=== PATIENT | female | born 1980 | race Two or more races ===

== ENCOUNTER 2018-07-25 01:04 | Emergency (ER) | payer SELFPAY ==
[~2018-07-25] VITALS: Ht 160 cm; Wt 85.5 kg
[2018-07-25 01:22] VITALS: BP 122/84
[2018-07-25] MEDS ORDERED: METHOCARBAMOL 750 MG TABLET ONE (01:57)
[2018-07-25] MEDS ORDERED: KETOROLAC 30 MG/1 ML ONE (01:57)
[2018-07-25] MEDS ORDERED: METHOCARBAMOL 500 MG TABLET PO ONE (02:00)
[2018-07-25] MEDS ORDERED: KETOROLAC 30 MG/1 ML IM ONE (02:00)
== END 2018-07-25 03:35 | disposition home or self-care (01) ==
LOC: ED 03:29
DX: G89.11 Acute pain due to trauma (principal); M54.5 Low back pain; F17.210 Nicotine dependence, cigarettes, uncomplicated; X58.XXXA Exposure to other specified factors, initial encounter; Y93.89 Activity, other specified; Y92.89 Other specified places as the place of occurrence of the external cause; Y99.8 Other external cause status
CPT/HCPCS: 72110; 93005; 96372; 99284; J1885

== ENCOUNTER 2019-01-08 08:48 | Emergency (ER) | payer MEDICAID, OTHER ==
[~2019-01-08] VITALS: Ht 160 cm; Wt 80.6 kg
[2019-01-08] MEDS ORDERED: methylPREDNISolone SOD SUCC 125 MG/2 ML ONE (09:13)
[2019-01-08] MEDS ORDERED: methylPREDNISolone SOD SUCC 125 MG/2 ML IVPush ONE (09:30)
[2019-01-08] MEDS ORDERED: AMPICILLIN/SULBACTAM 3 GM in SODIUM CHLORIDE 0.9% 100 ML IV ONE (09:30)
[2019-01-08] MEDS ORDERED: SODIUM CHLORIDE FLUSH 10ML SYR IVF ONE (09:30)
--- NOTE | 2019-01-08 09:40 | NUR ---
Sore throat w/ swollen tonsils x 2 days. Pain worse on R sd. Both tonsils swollen & red, almost touching. IV est, steroids & IV abx started. Pt aware of POC, call light within reach, blanket provided, friend @ BS.
[2019-01-08 10:49] VITALS: BP 108/57
--- NOTE | 2019-01-08 10:51 | NUR ---
Patient/Caregiver given discharge instructions and they have confirmed that they understand the instructions. Patient ambulatory with steady gait. Pt left with all personal belongings.
== END 2019-01-08 10:52 | disposition home or self-care (01) ==
LOC: ED 10:14
DX: J03.91 Acute recurrent tonsillitis, unspecified (principal); F17.200 Nicotine dependence, unspecified, uncomplicated
CPT/HCPCS: 96365; 96375; 99283; J0295; J2930

== ENCOUNTER 2019-08-17 20:00 | Observation (INO) | payer MEDICAID ==
[~2019-08-17] VITALS: Ht 160 cm; Wt 78.5 kg
[2019-08-17] MEDS ORDERED: AMOXICILLIN 500 MG CAPSULE PO ONE (20:30)
[2019-08-17] MEDS ORDERED: DEXAMETHASONE 4 MG TABLET PO ONE (20:30)
[2019-08-17] MEDS ORDERED: DEXAMETHASONE 4 MG/ML, 5ML ONE (20:58)
[2019-08-17] MEDS ORDERED: ONDANSETRON 2MG/ML, 2ML ONE (20:59)
[2019-08-17] MEDS ORDERED: MORPHINE SULFATE 4 MG/ML, 1ML ONE (20:59)
[2019-08-17] MEDS ORDERED: CLINDAMYCIN PMX 600MG/50ML 50 ML ONE (20:59)
[2019-08-17] MEDS ORDERED: BENZOCAINE AEROSOL SPRAY 20%, 60ML TP ONE (21:00)
[2019-08-17] MEDS ORDERED: DEXAMETHASONE 4 MG/ML, 1ML IVPush SCH (21:00)
[2019-08-17] MEDS ORDERED: CLINDAMYCIN PMX 600MG/50ML 50 ML IV ONE (21:00)
[2019-08-17] MEDS ORDERED: SODIUM CHLORIDE 0.9% 1,000ML IVBOLUS ONE (21:00)
[2019-08-17] MEDS ORDERED: ONDANSETRON 2MG/ML, 2ML IVPush ONE (21:00)
[2019-08-17] MEDS: MORPHINE SULFATE 4 MG/ML, 1ML IVPush PRN (21:06)
[2019-08-17] MEDS ORDERED: BENZOCAINE 20% SPRAY 0.5ML ONE (21:32)
[2019-08-17] MEDS ORDERED: BENZOCAINE AEROSOL SPRAY 20%, 60ML ONE (21:32)
[2019-08-17] MEDS ORDERED: HYDROmorphone 1 MG/ML, 1ML INJ IVPush PRN (22:00)
--- NOTE | 2019-08-17 22:04 | NUR ---
CT PENDING CREATINE
[2019-08-17] MEDS ORDERED: HYDROmorphone 1 MG/ML, 1ML VIAL ONE (22:06)
[2019-08-17 22:18] LABS: BASOPHILS # (AUTO) 0.03 x10^3/uL (0-0.1); BASOPHILS % (AUTO) 0 % (0-1); EOSINOPHILS % (AUTO) 0 % (1-7); LYMPHOCYTES # (AUTO) 1.62 x10^3/uL (1-3.4); LYMPHOCYTES % (AUTO) 15 % (22-44); MD NO; MEAN CORPUSCULAR HEMOGLOBIN 24.6 pg (27.0-34.8); MEAN CORPUSCULAR HGB CONC 31.3 g/dL (32.4-35.8); MEAN CORPUSCULAR VOLUME 78.8 fL (80-100); MEAN PLATELET VOLUME 8.9 fL (7.4-10.4); MONOCYTES # (AUTO) 0.51 x10^3/uL (0.2-0.8); MONOCYTES % (AUTO) 5 % (2-9); NEUTROPHILS # (AUTO) 8.37 x10^3/uL (1.8-6.8); NEUTROPHILS % (AUTO) 79 % (42-75); PLATELET COUNT 301 x10^3/uL (130-400); RED BLOOD COUNT 3.86 x10^6/uL (3.82-5.3)
--- NOTE | 2019-08-17 22:20 | NUR ---
PATIENT GIVEN ICE CHIPS, PROVIDER APPROVED. PATIENT TOLERATING INTERVENTIONS WELL. WILL CONTINUE TO MONITOR. PATIENT ABLE TO COMMUNICATE NEEDS, AND HAS IMPROVED WITH TOLERATING SECRETIONS.
[2019-08-17 22:28] LABS: ALANINE AMINOTRANSFERASE 25 U/L (12-78); ALBUMIN 3.3 g/dL (3.4-5.0); ANION GAP 5 mmol/L (5-15); CALCIUM 8.7 mg/dL (8.5-10.1); CHLORIDE 109 mmol/L (98-107)
[2019-08-17] MEDS ORDERED: DEXAMETHASONE 4 MG/ML, 1ML IVPush ONE (22:30)
[2019-08-17 22:31] LABS: ALKALINE PHOSPHATASE 103 U/L (45-117); BILIRUBIN,TOTAL 0.2 mg/dL (0.2-1.0); CREATININE 0.63 mg/dL (0.55-1.02); TOTAL PROTEIN 7.7 g/dL (6.4-8.2)
[2019-08-17] MEDS ORDERED: OMNIPAQUE 350 MG/ML, 100ML BOTTLE ONE (23:27)
--- NOTE | 2019-08-17 23:50 | NUR ---
PATIENT GIVEN ICE CHIPS, PROVIDER OKAY'D. PATIENT TOLERATING PROCEDURES WELL. NO NOTED ACUTE DISTRES. VITAL SIGNS STABLE. WILL CONTINUE TO MONITOR.
[2019-08-18] MEDS ORDERED: POTASSIUM CHLORIDE 40 MEQ in SODIUM CHLORIDE 0.9% 500 ML IV ONE ×2 (00:30→02:00)
[2019-08-18] MEDS ORDERED: SODIUM CHLORIDE 0.9% 1,000 ML IV ONE (00:33)
[2019-08-18] MEDS ORDERED: MORPHINE SULFATE 4 MG/ML, 1ML ONE (00:36)
[2019-08-18] MEDS: MORPHINE SULFATE 4 MG/ML, 1ML IVPush PRN (00:43)
--- NOTE | 2019-08-18 01:08 | NUR ---
patient given hurricaine, patient stated that her pain immediately improved. patient stated that the pain was "almost gone".
[2019-08-18] MEDS ORDERED: SODIUM CHLORIDE 0.9% 1,000 ML IV SCH (01:31)
[2019-08-18 01:51] VITALS: BP 116/82
[2019-08-18] MEDS ORDERED: hydrALAzine 20 MG/ML, 1ML IVPush PRN (02:00)
[2019-08-18] MEDS ORDERED: PROMETHAZINE 25 MG/ML, 1ML IM PRN (02:00)
[2019-08-18] MEDS ORDERED: ONDANSETRON ODT 4 MG PO PRN (02:00)
[2019-08-18] MEDS ORDERED: OXYcodone IR 5MG TABLET PO PRN (02:00)
[2019-08-18] MEDS ORDERED: BISACODYL 10 MG SUPP PR PRN (02:00)
[2019-08-18] MEDS ORDERED: morphine SULFATE 10 MG/ML, 1ML IVPush PRN (02:00)
[2019-08-18] MEDS ORDERED: ONDANSETRON 2MG/ML, 2ML IVPush PRN (02:00)
[2019-08-18] MEDS ORDERED: DOCUSATE 100 MG CAPSULE PO PRN (02:00)
[2019-08-18] MEDS ORDERED: KETOROLAC 30 MG/1 ML IV PRN (02:00)
[2019-08-18] MEDS ORDERED: POLYETHYLENE GLYCOL 17 GM PACKET PO PRN (02:00)
[2019-08-18] MEDS ORDERED: ACETAMINOPHEN 325 MG TABLET PO PRN (02:00)
[2019-08-18] MEDS: AMPICILLIN/SULBACTAM 3 GM in SODIUM CHLORIDE 0.9% 100 ML IV SCH ×2 (02:02→08:21)
[2019-08-18] MEDS: DEXAMETHASONE 4 MG/ML, 1ML IVPush SCH ×2 (02:02→08:21)
[2019-08-18 02:10] LABS: FREE T4 (FREE THYROXINE) 1.08 ng/dL (0.76-1.46)
[2019-08-18 02:12] LABS: HEMOGLOBIN A1C 5.1 % (4.2-6.3)
[2019-08-18] MEDS ORDERED: ACETAMINOPHEN 650 MG/20.3 ML UDC PO PRN (03:00)
[2019-08-18] MEDS: OXYcodone 5 MG/5 ML ORAL.SOL UDC PO PRN ×2 (03:05→07:41)
[2019-08-18 03:06] VITALS: BP 116/82
[2019-08-18 05:25] LABS: BASOPHILS % (AUTO) 0 % (0-1); EOSINOPHILS # (AUTO) 0.18 x10^3/uL (0-0.4); EOSINOPHILS % (AUTO) 2 % (1-7); LYMPHOCYTES # (AUTO) 0.65 x10^3/uL (1-3.4); LYMPHOCYTES % (AUTO) 5 % (22-44); MD NO; MEAN CORPUSCULAR VOLUME 80.5 fL (80-100); MONOCYTES # (AUTO) 0.11 x10^3/uL (0.2-0.8); MONOCYTES % (AUTO) 1 % (2-9); NEUTROPHILS # (AUTO) 11.36 x10^3/uL (1.8-6.8); NEUTROPHILS % (AUTO) 92 % (42-75); PLATELET COUNT 287 x10^3/uL (130-400); RED BLOOD COUNT 3.81 x10^6/uL (3.82-5.3); RED CELL DISTRIBUTION WIDTH 17.3 % (9.6-15.2)
[2019-08-18 05:39] LABS: ANION GAP 5 mmol/L (5-15); CHLORIDE 111 mmol/L (98-107)
[2019-08-18 05:43] LABS: ALANINE AMINOTRANSFERASE 22 U/L (12-78); ALBUMIN 3.3 g/dL (3.4-5.0); ALKALINE PHOSPHATASE 114 U/L (45-117); BILIRUBIN,TOTAL 0.6 mg/dL (0.2-1.0); CREATININE 0.62 mg/dL (0.55-1.02); TOTAL PROTEIN 7.7 g/dL (6.4-8.2)
[2019-08-18 07:53] VITALS: BP 102/68
[2019-08-19] MEDS ORDERED: SODIUM CHLORIDE 0.9% 1,000 ML IV SCH (01:31)
== END 2019-08-18 12:23 | disposition left against medical advice (07) ==
LOC: ED 08-18 00:13 → INTOOBSV 08-18 01:04 → EDIP 08-18 01:04 → 4NE 08-18 01:35
PROVIDERS: ADMIT Internal Medicine; ATTEND Internal Medicine
DX: J03.90 Acute tonsillitis, unspecified (principal); D50.9 Iron deficiency anemia, unspecified; E87.6 Hypokalemia; F17.210 Nicotine dependence, cigarettes, uncomplicated; G43.909 Migraine, unspecified, not intractable, without status migrainosus; R59.9 Enlarged lymph nodes, unspecified; Z53.29 Procedure and treatment not carried out because of patient's decision for other reasons; Z79.899 Other long term (current) drug therapy
CPT/HCPCS: 36415; 70491; 80053; 82728; 83036; 83540; 83550; 83735; 84439; 84443; 84466; 85025; 86308; 87081; 87147; 87389; 87880; 96365; 96366; 96368; 96375; 96376; 99285; G0378; J0295; J1100; J1170; J1885; J2270; J2405; J3480; J7030; J7040; Q9967

== ENCOUNTER 2019-10-13 00:45 | Emergency (ER) | payer MEDICAID ==
[~2019-10-13] VITALS: Ht 160 cm; Wt 78.4 kg
--- NOTE | 2019-10-13 01:11 | NUR ---
ASSESSMENT MADE. ERP AT BEDSIDE.
[2019-10-13] MEDS ORDERED: SULFAMETH./TRIMETHOPRIM DS 800MG/160MG TABLET PO ONE (01:30)
[2019-10-13] MEDS ORDERED: LIDOCAINE 1%-EPI 1:100K, 20ML INFIL ONE (01:30)
[2019-10-13] MEDS ORDERED: CEPHALEXIN 500 MG CAPSULE ONE (01:30)
[2019-10-13] MEDS ORDERED: CEPHALEXIN 500 MG CAPSULE PO ONE (01:30)
[2019-10-13] MEDS ORDERED: ACETAMINOPHEN 500 MG TABLET PO ONE (01:30)
[2019-10-13] MEDS ORDERED: IBUPROFEN 600 MG TABLET PO ONE (01:30)
[2019-10-13] MEDS ORDERED: IBUPROFEN 600 MG TABLET ONE (01:31)
[2019-10-13] MEDS ORDERED: SULFAMETH./TRIMETHOPRIM DS 800MG/160MG TABLET ONE (01:31)
[2019-10-13] MEDS ORDERED: ACETAMINOPHEN 500 MG TABLET ONE (01:31)
[2019-10-13] MEDS ORDERED: LIDOCAINE 1%-EPI 1:100K, 20ML ONE (01:31)
--- NOTE | 2019-10-13 01:52 | NUR ---
PATIENT MEDICATED. PA AT BEDSIDE FOR I & D
[2019-10-13] MEDS ORDERED: DIPH,PERTUSS(ACELL),TET VAC/PF 0.5 ML IM-VACC ONE ×2 (02:12→02:30)
[2019-10-13 02:23] VITALS: BP 126/78
--- NOTE | 2019-10-13 02:23 | NUR ---
I & D DONE. PATIENT DISCHARGED WITH PRESCRIPTIONS AND INSTRUCTION. VERBALIZED UNDERSTANDING.
== END 2019-10-13 02:25 | disposition home or self-care (01) ==
LOC: ED 01:11
DX: L02.11 Cutaneous abscess of neck (principal); F17.200 Nicotine dependence, unspecified, uncomplicated
CPT/HCPCS: 10060; 90471; 90715; 99284; J3490

== ENCOUNTER 2020-02-28 17:01 | Inpatient (IN) | payer MEDICAID ==
[~2020-02-28] VITALS: Ht 160 cm; Wt 79.0 kg
--- NOTE | 2020-02-28 17:12 | NUR ---
BRITNI (GOOD FRIEND)
--- NOTE | 2020-02-28 17:26 | NUR ---
Task RN:this is a 39 y/o female arriving to the ed with fever, chills, body aches and sore throat with no cough. Per pt she was around someone with +strep throat. Pt on arrival is febrile and reports she has not taken any tylenol or motrin at home to help break the fever or help with the pain. Pt reports this pain is very severe into regarding to body aches. Pt reports no COVID 19 known exposure. Pt is very anxious. Pt was walked to restroom and then back to room. Connected to monitors and call light in reach. Faby RN at bedside placing PIV at this time. Pt in isolation due to Influenza Like Illness symptoms. Awaitig further orders. Faby Rn to be primary RN.
[2020-02-28] MEDS ORDERED: DEXAMETHASONE 4 MG/ML, 1ML IV ONE (18:00)
[2020-02-28] MEDS ORDERED: SODIUM CHLORIDE 0.9% 1,000ML IVBOLUS ONE (18:00)
[2020-02-28] MEDS ORDERED: SODIUM CHLORIDE FLUSH 10ML SYR IVF ONE (18:00)
[2020-02-28] MEDS ORDERED: PIPERACILLIN/TAZO/PMX 3.375GM 50 ML IV ONE (18:00)
[2020-02-28] MEDS ORDERED: DEXAMETHASONE 4 MG/ML, 5ML ONE (18:07)
[2020-02-28] MEDS ORDERED: PIPERACILLIN/TAZO/PMX 3.375GM 50 ML ONE (18:07)
[2020-02-28 18:21] LABS: MEAN CORPUSCULAR HEMOGLOBIN 24.4 pg (27.0-34.8); MEAN CORPUSCULAR VOLUME 76.3 fL (80-100); PLATELET COUNT 301 x10^3/uL (130-400); RED BLOOD COUNT 3.57 x10^6/uL (3.82-5.3); RED CELL DISTRIBUTION WIDTH 21.5 % (9.6-15.2)
[2020-02-28 18:35] LABS: MD YES
[2020-02-28 18:37] LABS: BAND#(MANUAL) 1.85 x10^3/uL; BANDS%(MANUAL) 8 % (0-7); LYMPH#(MANUAL) 1.16 x10^3/uL (1-3.4); LYMPHS% (MANUAL) 5 % (22-44); MONOS#(MANUAL) 0.69 x10^3/uL (0.3-2.7); MONOS% (MANUAL) 3 % (2-9); SEGS% (MANUAL) 84 % (42-75)
[2020-02-28 18:41] LABS: ALBUMIN 3.2 g/dL (3.4-5.0); ANION GAP 7 mmol/L (5-15); CALCIUM 8.2 mg/dL (8.5-10.1); CHLORIDE 106 mmol/L (98-107); CREATININE 0.81 mg/dL (0.55-1.02)
[2020-02-28 18:42] LABS: ANISOCYTOSIS 1+; MICROCYTOSIS 1+
[2020-02-28 18:43] LABS: HYPOCHROMIA 1+
[2020-02-28 18:44] LABS: <PLATELET ESTIMATE> ADEQUATE; POLYCHROMASIA 1+
[2020-02-28 18:45] LABS: <PLT MORPHOLOGY> NORMAL PLT MORPH
[2020-02-28] MEDS ORDERED: ACETAMINOPHEN 500 MG TABLET ONE (19:23)
--- NOTE | 2020-02-28 19:24 | NUR ---
SPOKE TO MD REGARDING PT'S TEMP. 1000MG TYLENOL ORDERED AND GIVEN.
--- NOTE | 2020-02-28 19:42 | NUR ---
PT TO AND FROM RESTROOM WITH STEADY GAIT. 2ND L IVF BOLUS INFUSING. REMAINS SINUS TACH ON WELL LOGGING MUD ANALYSIS CAPTAIN. DENIES CURRENT NEEDS. WILL BE ADMITTED AND IS AGREEABLE TO PLAN OF CARE.
[2020-02-28] MEDS ORDERED: ACETAMINOPHEN 500 MG TABLET PO ONE (20:00)
--- NOTE | 2020-02-28 20:18 | NUR ---
PT SLEEPING AT THIS TIME. AWAITING BED PLACEMENT.
--- NOTE | 2020-02-28 20:47 | NUR ---
TEMP NOW 99.7. NSR ON VACUUM DRIER TENDER. PT RESTING AND DENIES CURRENT NEEDS AT THIS TIME. REPORTS BODY ACHES HAVE SIGNIFICANTLY IMPROVED.
[2020-02-28] MEDS ORDERED: ONDANSETRON 2MG/ML, 2ML IVPush PRN (21:30)
[2020-02-28] MEDS ORDERED: PHARMACY MAY ADJ FOR RENAL FX MC PRN (21:30)
[2020-02-28] MEDS ORDERED: hydrALAzine 20 MG/ML, 1ML IVPush PRN (21:30)
[2020-02-28] MEDS ORDERED: ACETAMINOPHEN 325 MG TABLET PO PRN (21:30)
[2020-02-28] MEDS ORDERED: LACTATED RINGERS 1,000 ML IV SCH (21:30)
[2020-02-28] MEDS ORDERED: morphine SULFATE 10 MG/ML, 1ML IVPush PRN (21:30)
--- NOTE | 2020-02-28 21:47 | NUR ---
INFLUENZA, COVID AND STREP SWABS DRAWN. URINE SENT TO LAB. LAB TO BEDSIDE TO DRAW ADDITIONAL LABS. VSS. REPORT CALLED TO [facility].
[2020-02-28 21:54] LABS: ALBUMIN 2.8 g/dL (3.4-5.0); BILIRUBIN, DIRECT 0.1 mg/dL (0.1-0.2)
[2020-02-28 22:00] VITALS: BP 91/60
[2020-02-28 22:00] LABS: AMPHETAMINE SCREEN, URINE Positive (Negative); BARBITURATE SCREEN, URINE Negative (Negative); BENZODIAZEPINE SCREEN, URINE Negative (Negative); CANNABINOID SCREEN, URINE Negative (Negative); COCAINE SCREEN, URINE Negative (Negative); METHADONE SCREEN, URINE Negative (Negative); OPIATE SCREEN, URINE Negative (Negative)
[2020-02-28] MEDS ORDERED: POTASSIUM CHLORIDE 20 MEQ TAB.ER.PRT PO ONE (22:00)
[2020-02-28 22:01] LABS: HCG UR SG 1.015 (1.003-1.030)
[2020-02-28 22:01] LABS: BILIRUBIN,INDIRECT 0.4 mg/dL (0.0-2.0); BILIRUBIN,TOTAL 0.5 mg/dL (0.2-1.0); TOTAL PROTEIN 6.8 g/dL (6.4-8.2)
[2020-02-28 22:09] LABS: RAPID INFLUENZA A Negative (Negative); RAPID INFLUENZA B Negative (Negative)
[2020-02-28] MEDS: ENOXAPARIN 40 MG/0.4 ML SQ SCH (22:31)
[2020-02-28] MEDS: AMPICILLIN/SULBACTAM 3 GM in SODIUM CHLORIDE 0.9% 100 ML IV SCH (22:52)
[2020-02-28] MEDS ORDERED: PIPERACILLIN/TAZO/PMX 3.375GM 50 ML IVPB SCH (23:00)
[2020-02-29 00:24] VITALS: BP 91/59
[2020-02-29] MEDS: AMPICILLIN/SULBACTAM 3 GM in SODIUM CHLORIDE 0.9% 100 ML IV SCH ×4 (05:04→23:34)
[2020-02-29 06:12] LABS: BASOPHILS % (AUTO) 0 % (0-1); EOSINOPHILS # (AUTO) 0.06 x10^3/uL (0-0.4); EOSINOPHILS % (AUTO) 0 % (1-7); LYMPHOCYTES # (AUTO) 1.02 x10^3/uL (1-3.4); LYMPHOCYTES % (AUTO) 6 % (22-44); MD NO; MEAN CORPUSCULAR HEMOGLOBIN 24.2 pg (27.0-34.8); MEAN CORPUSCULAR HGB CONC 31.4 g/dL (32.4-35.8); MEAN CORPUSCULAR VOLUME 76.8 fL (80-100); MEAN PLATELET VOLUME 8.8 fL (7.4-10.4); MONOCYTES # (AUTO) 0.25 x10^3/uL (0.2-0.8); MONOCYTES % (AUTO) 1 % (2-9); NEUTROPHILS # (AUTO) 16.35 x10^3/uL (1.8-6.8); NEUTROPHILS % (AUTO) 93 % (42-75); PLATELET COUNT 279 x10^3/uL (130-400); RED BLOOD COUNT 3.36 x10^6/uL (3.82-5.3); RED CELL DISTRIBUTION WIDTH 21.3 % (9.6-15.2)
[2020-02-29 06:19] LABS: ANION GAP 8 mmol/L (5-15); CALCIUM 7.8 mg/dL (8.5-10.1); CHLORIDE 114 mmol/L (98-107); CREATININE 0.52 mg/dL (0.55-1.02)
[2020-02-29 06:43] VITALS: BP 80/44
[2020-02-29] MEDS: ZINC SULFATE 220 MG CAPSULE PO SCH (08:25)
[2020-02-29 13:18] VITALS: BP 87/49
[2020-02-29 19:33] VITALS: BP 102/69
[2020-02-29] MEDS: ENOXAPARIN 40 MG/0.4 ML SQ SCH (20:47)
[2020-03-01 00:47] VITALS: BP 100/61
[2020-03-01] MEDS: AMPICILLIN/SULBACTAM 3 GM in SODIUM CHLORIDE 0.9% 100 ML IV SCH ×3 (04:58→17:20)
[2020-03-01 08:20] VITALS: BP 89/56
[2020-03-01] MEDS ORDERED: IRON SUCROSE COMPLEX 100MG/5ML IV SCH (09:30)
[2020-03-01] MEDS ORDERED: DOCUSATE 100 MG CAPSULE PO SCH (10:00)
[2020-03-01 10:22] LABS: MEAN CORPUSCULAR HEMOGLOBIN 24.5 pg (27.0-34.8); MEAN CORPUSCULAR HGB CONC 31.2 g/dL (32.4-35.8); MEAN CORPUSCULAR VOLUME 78.3 fL (80-100); MEAN PLATELET VOLUME 8.6 fL (7.4-10.4); PLATELET COUNT 281 x10^3/uL (130-400); RED BLOOD COUNT 3.17 x10^6/uL (3.82-5.3); RED CELL DISTRIBUTION WIDTH 20.6 % (9.6-15.2)
[2020-03-01 10:26] LABS: ALBUMIN 2.3 g/dL (3.4-5.0); ANION GAP 9 mmol/L (5-15); CALCIUM 7.6 mg/dL (8.5-10.1); CHLORIDE 110 mmol/L (98-107)
[2020-03-01 10:30] LABS: ALANINE AMINOTRANSFERASE 22 U/L (12-78); ALKALINE PHOSPHATASE 66 U/L (45-117); BILIRUBIN,TOTAL 0.1 mg/dL (0.2-1.0)
[2020-03-01 10:39] LABS: BASOPHILS % (AUTO) 0 % (0-1); EOSINOPHILS # (AUTO) 0.01 x10^3/uL (0-0.4); EOSINOPHILS % (AUTO) 0 % (1-7); LYMPHOCYTES # (AUTO) 2.65 x10^3/uL (1-3.4); LYMPHOCYTES % (AUTO) 25 % (22-44); MD SCAN; MONOCYTES # (AUTO) 0.54 x10^3/uL (0.2-0.8); MONOCYTES % (AUTO) 5 % (2-9); NEUTROPHILS # (AUTO) 7.41 x10^3/uL (1.8-6.8); NEUTROPHILS % (AUTO) 70 % (42-75)
[2020-03-01] MEDS: ZINC SULFATE 220 MG CAPSULE PO SCH (10:52)
[2020-03-01 12:32] VITALS: BP 92/57
[2020-03-01] MEDS ORDERED: OMNIPAQUE 350 MG/ML, 100ML BOTTLE ONE (14:05)
[2020-03-01 18:34] VITALS: BP 89/57
== END 2020-03-01 20:48 | disposition left against medical advice (07) | DRG 872 ==
LOC: ED 18:25 → EDIP 19:37 → 4NW 21:57 → 3N 03-01 12:29
PROVIDERS: ADMIT Family Medicine; ATTEND Internal Medicine
DX: A40.9 Streptococcal sepsis, unspecified (principal); D50.9 Iron deficiency anemia, unspecified; D53.9 Nutritional anemia, unspecified; E87.6 Hypokalemia; F17.210 Nicotine dependence, cigarettes, uncomplicated; J02.0 Streptococcal pharyngitis; N92.0 Excessive and frequent menstruation with regular cycle; G43.909 Migraine, unspecified, not intractable, without status migrainosus; G89.29 Other chronic pain; M54.9 Dorsalgia, unspecified; D72.829 Elevated white blood cell count, unspecified; Z03.818 Encounter for observation for suspected exposure to other biological agents ruled out
CPT/HCPCS: 36415; 70491; 71045; 80048; 80053; 80076; 80307; 81025; 82040; 82728; 83540; 83550; 83605; 83615; 83735; 84145; 84466; 85025; 85379; 86140; 86308; 87040; 87081; 87147; 87400; 87880; 93005; 96365; 96375; G0378; J0295; J1100; J1650; J1756; J2405; J2543; Q9967; J7030; J7120; U0001-CS

== ENCOUNTER 2020-07-06 09:08 | Emergency (ER) | payer MEDICAID ==
[2020-07-06] VITALS (7 sets, daily range): BP systolic 108–120; BP diastolic 62–74
[~2020-07-06] VITALS: Ht 160 cm; Wt 80.0 kg
--- NOTE | 2020-07-06 09:16 | NUR ---
EKG DONE SR ON MONITOR MEET ALEXIS IN ROOM FOR EVAL.
[2020-07-06] MEDS ORDERED: FAMOTIDINE 20 MG/2 ML IVPush ONE (09:30)
[2020-07-06] MEDS ORDERED: SODIUM CHLORIDE FLUSH 10ML SYR IVF ONE (09:30)
[2020-07-06] MEDS ORDERED: FAMOTIDINE 20 MG/2 ML ONE (09:34)
[2020-07-06 09:57] LABS: MICROSCOPIC AUTO
[2020-07-06 10:05] LABS: ALANINE AMINOTRANSFERASE 32 U/L (12-78); ANION GAP 5 mmol/L (5-15); CALCIUM 8.5 mg/dL (8.5-10.1); CHLORIDE 112 mmol/L (98-107); CREATININE 0.63 mg/dL (0.55-1.02); INTERNATIONAL NORMALIZED RATIO 0.96 (0.93-1.1); PROTHROMBIN TIME 9.9 Seconds (9.6-11.5)
[2020-07-06 10:10] LABS: ALKALINE PHOSPHATASE 73 U/L (45-117); BILIRUBIN,TOTAL 0.2 mg/dL (0.2-1.0); TOTAL PROTEIN 6.7 g/dL (6.4-8.2)
[2020-07-06 10:13] LABS: MEAN CORPUSCULAR HEMOGLOBIN 19.3 pg (27.0-34.8); MEAN PLATELET VOLUME 8.8 fL (7.4-10.4); PLATELET COUNT 300 x10^3/uL (130-400); RED BLOOD COUNT 2.97 x10^6/uL (3.82-5.3); RED CELL DISTRIBUTION WIDTH 20.4 % (9.6-15.2)
--- NOTE | 2020-07-06 10:27 | NUR ---
h/h low as documented. report to makayla. blood consent signed and on chart, education provided. purple blood slip sent to lab. vss. as
[2020-07-06 10:28] LABS: HEMOGRAM NOTE RECHECKED
[2020-07-06 10:30] LABS: MD YES
[2020-07-06 10:32] LABS: ANISOCYTOSIS 2+; HYPOCHROMIA 2+; LYMPH#(MANUAL) 1.39 x10^3/uL (1-3.4); LYMPHS% (MANUAL) 29 % (22-44); MICROCYTOSIS 2+; MONOS#(MANUAL) 0.38 x10^3/uL (0.3-2.7); MONOS% (MANUAL) 8 % (2-9); SEG#(MANUAL) 3.02 x10^3/uL (1.8-6.8); SEGS% (MANUAL) 63 % (42-75)
[2020-07-06 10:33] LABS: POLYCHROMASIA 1+; STOMATOCYTES 1+
[2020-07-06 10:34] LABS: <PLATELET ESTIMATE> ADEQUATE; <PLT MORPHOLOGY> NORMAL PLT MORPH; OVALOCYTES 1+
--- NOTE | 2020-07-06 11:29 | NUR ---
called blood bank. [facility] sts they "sent blood at 1030" and called unit tech, unit tech sts they did not receive a call saying blood was sent, only that bb needed a purple slip (purple slip sent at 1025 as charted in previous note). blood found in tube station at 1128. can hang up til 1430 per bb tech. pt now at [facility]. delay in blood transfusion due to this. as
--- NOTE | 2020-07-06 12:03 | NUR ---
PT BACK FROM [facility]. BLOOD TX STARTRED AT 1200, 2 RN CHECK. VSS. CALL TERELL.
--- NOTE | 2020-07-06 12:15 | NUR ---
TOLERATING BLOOD VSS.
--- NOTE | 2020-07-06 13:15 | NUR ---
2 prbc requested from nancy w purple slip. pt sleeping, vss, nad. as
--- NOTE | 2020-07-06 13:33 | NUR ---
2nd prbc hung. infusing. as
--- NOTE | 2020-07-06 14:14 | NUR ---
oob to bathroom gait steady sts feels better, more awake. blood infusing. as
--- NOTE | 2020-07-06 17:22 | NUR ---
navin patterson, pt forgot her dc papers in [employer], dc papers faxed to [phone]. as
== END 2020-07-06 15:09 | disposition home or self-care (01) ==
LOC: ED 09:56
DX: D25.1 Intramural leiomyoma of uterus (principal); D50.0 Iron deficiency anemia secondary to blood loss (chronic); R06.02 Shortness of breath; R53.83 Other fatigue
CPT/HCPCS: 36415; 36430; 76830; 80053; 81001; 83690; 84703; 85025; 85610; 86850; 86900; 86923; 93005; 96374; 99285; J3490; P9016